=== PATIENT | male | born 1955 | race Caucasian/White ===

== ENCOUNTER 2017-01-23 10:46 | Emergency (ER) | payer OTHER ==
[~2017-01-23] VITALS: Ht 177.8 cm; Wt 129.0 kg
[2017-01-23 10:50] VITALS: PULSE 72; RESP 18; TEMP 98.1; O2SAT 95
[2017-01-23] MEDS ORDERED: METF1000 PO (11:20)
[2017-01-23] MEDS ORDERED: APIX5TAB PO (11:20)
[2017-01-23] MEDS ORDERED: METO100T9 PO (11:20)
[2017-01-23] MEDS ORDERED: CANA300T PO (11:20)
--- NOTE | 2017-01-23 11:22 | PD ---
HPI Chief Complaint: Flank/Kidney Pain Time Seen by Provider: 11:19 Travel History International Travel<30 days: No Contact w/Intl Traveler<30days: No Traveled to known affect area: No History of Present Illness HPI 61-year-old male with history of previous kidney stones, presents to the ER today for left flank pains that started at 6 AM. He states is currently a 6 out of 10 but getting worse. He has been nauseous, vomiting, he states the pain is waxing and waning which is more consistent with his previous kidney stones. He denies any diarrhea, fevers, urinary symptoms, or any other symptoms. He states that her left flank pain radiates to his left lower quadrant. Modifying Factors: None Associated Signs & Symptoms: Left flank pain Risk Factors: Kidney stone history PFSH Past Medical History Diabetes: Yes Patient Takes Glucophage: Yes Genitourinary: Yes (KIDNEY STONES) Hypertension: Yes Medical other: Yes (BLOOD CLOT IN HEART) Past Surgical History Other Surgery: Yes (LUMP REMOVED L LUNG) Social History Alcohol Use: Yes Tobacco Use: No Substance Use: Yes (MARIJUANA) Allergies-Medications (Allergen,Severity, Reaction): Coded Allergies: No Known Allergies (Unverified , 01/23/17) Reported Meds & Prescriptions Reported Meds & Active Scripts Active Reported Eliquis (Apixaban) 5 Mg Tab 5 Mg PO DAILY Metoprolol Succinate ER 24 HR (Metoprolol Succinate) 100 Mg Tab 100 Mg PO BID Metformin (Metformin HCl) 1,000 Mg Tab 1,000 Mg PO BIDPC With meals Invokana (Canagliflozin) 300 Mg Tab 300 Mg PO DAILY Take before 1st meal of day. Review of Systems Except as stated in HPI: all other systems reviewed are Neg Physical Exam Narrative GENERAL: Middle age white male currently in mild distress. He is awake, alert, oriented 3. SKIN: Warm and dry. HEAD: Atraumatic. Normocephalic. EYES: Pupils equal and round. No scleral icterus. No injection or drainage. ENT: No nasal bleeding or discharge. Mucous membranes pink and moist. NECK: Trachea midline. No JVD. CARDIOVASCULAR: Regular rate and rhythm. No murmur appreciated. RESPIRATORY: No accessory muscle use. Clear to auscultation. Breath sounds equal bilaterally. GASTROINTESTINAL: Abdomen soft, mild left-sided tenderness without guarding or rebound, nondistended. Hepatic and splenic margins not palpable. MUSCULOSKELETAL: No obvious deformities. No clubbing. No cyanosis. No edema. NEUROLOGICAL: Awake and alert. No obvious cranial nerve deficits. Motor grossly within normal limits. Normal speech. PSYCHIATRIC: Appropriate mood and affect; insight and judgment normal. Data Data Last Documented VS Vital Signs Date Time Temp Pulse Resp B/P Pulse Ox O2 Delivery O2 Flow Rate FiO2 01/23/17 12:12 72 18 143/68 98 01/23/17 10:50 98.1 Room Air Orders Complete Blood Count With Diff (01/23/17 11:06) Comprehensive Metabolic Panel (01/23/17 11:06) Lipase (01/23/17 11:06) Urinalysis - C+S If Indicated (01/23/17 11:06) Ct Abd/Pel W/O Iv Contrast (01/23/17 11:06) Iv Access Insert/Monitor (01/23/17 11:06) Ecg Monitoring (01/23/17 11:06) Oximetry (01/23/17 11:06) Sodium Chlor 0.9% 1000 Ml Inj (Ns 1000 M (01/23/17 11:30) Ondansetron Inj (Zofran Inj) (01/23/17 11:30) Ketorolac Inj (Toradol Inj) (01/23/17 11:30) Labs Laboratory Tests Test 01/23/17 11:20 White Blood Count 11.6 TH/MM3 Red Blood Count 5.52 MIL/MM3 Hemoglobin 15.9 GM/DL Hematocrit 48.8 % Mean Corpuscular Volume 88.4 FL Mean Corpuscular Hemoglobin 28.8 PG Mean Corpuscular Hemoglobin 32.6 % Concent Red Cell Distribution Width 13.0 % Platelet Count 213 TH/MM3 Mean Platelet Volume 9.3 FL Neutrophils (%) (Auto) 76.8 % Lymphocytes (%) (Auto) 17.3 % Monocytes (%) (Auto) 4.2 % Eosinophils (%) (Auto) 0.8 % Basophils (%) (Auto) 0.9 % Neutrophils # (Auto) 8.9 TH/MM3 Lymphocytes # (Auto) 2.0 TH/MM3 Monocytes # (Auto) 0.5 TH/MM3 Eosinophils # (Auto) 0.1 TH/MM3 Basophils # (Auto) 0.1 TH/MM3 CBC Comment DIFF FINAL Differential Comment Urine Collection Type CLEAN CATCH Urine Color YELLOW Urine Turbidity SLIGHT Urine pH 5.5 Urine Specific [place] 1.030 Urine Protein NEG mg/dL Urine Glucose (UA) 1000 OR GREATER mg/dL Urine Ketones NEG mg/dL Urine Occult Blood LARGE Urine Nitrite NEG Urine Bilirubin NEG Urine Leukocyte Esterase NEG Urine RBC 100-200 /hpf Urine WBC 0-2 /hpf Urine Squamous Epithelial 0-5 /hpf Cells Urine Bacteria FEW /hpf Microscopic Urinalysis Comment CULT NOT INDICATED Urine Collection Time 11:20 Sodium Level 141 MEQ/L Potassium Level 4.2 MEQ/L Chloride Level 105 MEQ/L Carbon Dioxide Level 23.7 MEQ/L Anion Gap 12 MEQ/L Blood Urea Nitrogen 20 MG/DL Creatinine 1.20 MG/DL Estimat Glomerular Filtration 62 ML/MIN Rate Random Glucose 176 MG/DL Calcium Level 9.2 MG/DL Total Bilirubin 0.6 MG/DL Aspartate Amino Transf 14 U/L (AST/SGOT) Alanine Aminotransferase 23 U/L (ALT/SGPT) Alkaline Phosphatase 67 U/L Total Protein 7.2 GM/DL Albumin 3.7 GM/DL Lipase 257 U/L [facility] Medical Decision Making Medical Screen Exam Complete: Yes Emergency Medical Condition: Yes Medical Record Reviewed: Yes Interpretation(s) Laboratory Tests Test 01/23/17 11:20 White Blood Count 11.6 TH/MM3 (4.0-11.0) Neutrophils (%) (Auto) 76.8 % (16.0-70.0) Neutrophils # (Auto) 8.9 TH/MM3 (1.8-7.7) Urine Glucose (UA) 1000 OR GREATER mg/dL (NEG) Urine Occult Blood LARGE (NEG) Urine RBC 100-200 /hpf (0-3) Urine Bacteria FEW /hpf (NONE) Blood Urea Nitrogen 20 MG/DL (7-18) Estimat Glomerular Filtration 62 ML/MIN (>89) Rate Random Glucose 176 MG/DL (74-106) Aspartate Amino Transf 14 U/L (15-37) (AST/SGOT) Differential Diagnosis Left flank pain and left-sided abdominal painsrenal colic versus pyelonephritis versus diverticulitis Narrative Course Lab work shows blood in the urine and the CAT scan shows 5 mm stone in the left ureter showing hydronephrosis. Patient was given IV fluids and Toradol in the ER. On reevaluation at 12:30 PM, his pain is better controlled and is currently a 4 out of 10. At this point, case was discussed with Dr. Garduno of urology and he states that the patient can follow-up with him in the clinic. Return for any worsening in pain or new symptoms as needed. The plan has been discussed with the patient and he states understanding. Diagnosis Primary Impression: Renal colic on left side Referrals: Dany Garduno MD Med/Other Pt SpecificInfo: Prescription(s) given Scripts Alfuzosin ER 24 HR (Uroxatral ER 24 HR)10 Mg Tab10 Mg PO DAILY #7 TAB Ref 0 Prov:Jacey Wilson MD 01/23/17 Hydrocodone-Acetaminophen (Lortab)5-325 Mg Tab1-2 Tab PO Q6H PRN (PAIN) #20 TAB Ref 0 Prov:Jacey Wilson MD 01/23/17 Disposition: 01 DISCHARGE HOME Condition: Stable Jacey Wilson MD Jan 23, 2017 11:22
[2017-01-23 11:30] VITALS: O2SAT 97
[2017-01-23 11:30] LABS: AUTOMATED NEUTROPHIL # 8.9 TH/MM3 (1.8-7.7); BASOPHIL # 0.1 TH/MM3 (0-0.2); BASOPHIL % 0.9 % (0.0-2.0); EOSINOPHIL # 0.1 TH/MM3 (0-0.4); EOSINOPHIL % 0.8 % (0.0-4.0); HEMATOCRIT 48.8 % (39.0-51.0); HEMO FLAGS DIFF FINAL; LYMPH % 17.3 % (9.0-44.0); MEAN CELL VOLUME 88.4 FL (80.0-100.0); MEAN CORPUSCULAR HEMOGLOBIN 28.8 PG (27.0-34.0); MEAN CORPUSCULAR HGB CONC 32.6 % (32.0-36.0); MONO % 4.2 % (0.0-8.0); NEUT % 76.8 % (16.0-70.0); PLATELET COUNT 213 TH/MM3 (150-450); RED BLOOD COUNT 5.52 MIL/MM3 (4.50-5.90); WHITE BLOOD COUNT 11.6 TH/MM3 (4.0-11.0)
[2017-01-23] MEDS ORDERED: ONDANSETRON HCL 4 MG/2 ML VIAL IV PUSH ONE (11:30)
[2017-01-23] MEDS ORDERED: SODIUM CHLOR 0.9% 1000 ML INJ 1,000 ML IV ONE (11:30)
[2017-01-23] MEDS ORDERED: KETOROLAC TROMETHAMINE 30 MG/ML (IVP) VIAL IV PUSH ONE (11:30)
[2017-01-23 11:36] LABS: BLOOD, URINE LARGE (NEG); KETONE, URINE NEG (NEG); NITRITE,URINE NEG (NEG); PH, URINE 5.5 (5.0-8.5)
[2017-01-23 11:37] LABS: GLUCOSE,URINE 1000 OR GREATER mg/dL (NEG)
[2017-01-23 11:39] LABS: CHLORIDE 105 MEQ/L (98-107); POTASSIUM 4.2 MEQ/L (3.5-5.1); SODIUM (NA) 141 MEQ/L (136-145)
[2017-01-23 11:43] LABS: ANION GAP 12 MEQ/L (5-15); BICARBONATE 23.7 MEQ/L (21.0-32.0); BLOOD UREA NITROGEN 20 MG/DL (7-18)
[2017-01-23 11:46] LABS: ALT (GPT) 23 U/L (12-78); AST (GOT) 14 U/L (15-37); GLOMERULAR FILTRATION RATE 62 ML/MIN (>89); METHOD OF COLLECTION CLEAN CATCH; URINE COLOR YELLOW (YELLW/STRAW)
[2017-01-23 11:47] LABS: BACTERIA, URINE FEW /hpf; RBC, URINE 100-200 /hpf (0-3); SQUAMOUS EPITHELIAL CELL URINE 0-5 /hpf (0-5); TOTAL BILIRUBIN ADULT 0.6 MG/DL (0.2-1.0); WBC, URINE 0-2 /hpf (0-5)
[2017-01-23 11:48] LABS: ALKALINE PHOSPHATASE 67 U/L (45-117); COMMENT (UR) CULT NOT INDICATED; CULTURE IF INDICATED CULT NOT INDICATED
--- NOTE | 2017-01-23 12:02 | RADHPO ---
EXAM DATE/TIME: 01/23/2017 11:27 [facility] COMPARISON: No previous studies available for comparison. INDICATIONS: Left flank pain. ORAL CONTRAST: No oral contrast ingested. RADIATION DOSE: 25.95 CTDIvol (mGy) MEDICAL HISTORY: Renal calculi. SURGICAL HISTORY: None. ENCOUNTER: Initial ACUITY: 1 day PAIN SCALE: 8/10 LOCATION: Left flank TECHNIQUE: Volumetric scanning of the abdomen and pelvis was performed. Using automated exposure control and ad justment of the mA and/or kV according to patient size, radiation dose was kept as low as reasonably achievable to obtain optimal diagnostic quality images. FINDINGS: There is acute obstructive uropathy of the left distal ureter secondary to calcified 5 mm calculus se veral centimeters proximal to the left ureterovesical junction resulting in mild ureteropelvic caliec tasis. Pyelosinus extravasation is noted on the left. There are multiple calcified non-obstructing left renal calculi also with the largest measuring approximately 7 mm in size. Evaluation of the solid organs of the abdomen is limited by the lack of intravenous contrast. Uncompl icated colonic diverticulosis is noted. The appendix is normal. The visualized lung bases are clear . Mild hepatosplenomegaly is noted. CONCLUSION: 1. Acute obstructive uropathy of the left distal ureter several centimeters proximal to the left ure terovesical junction secondary to a 5 mm calcified calculus resulting in mild ureteropelvic caliectas is on the left and pyelosinus extravasation on the left. 2. Multiple calcified non-obstructing left renal calculi are noted. 3. Mild hepatosplenomegaly. 4. Uncomplicated colonic diverticulosis. Glenroy Chen MD on January 23, 2017 at 11:41 Board Certified Radiologist. This report was verified electronically.
[2017-01-23 12:12] VITALS: BP 143/68; PULSE 72; RESP 18; O2SAT 98
[2017-01-23] MEDS ORDERED: UROX10TA3 PO (13:03)
[2017-01-23] MEDS ORDERED: HYDR-3533 PO (13:03)
[2017-01-23 13:09] VITALS: BP 129/72; PULSE 100; RESP 20; O2SAT 98
[2017-01-23] MEDS ORDERED: ZOFR4TAB3 SL (13:09)
== END 2017-01-23 13:20 | disposition home or self-care (01) ==
LOC: PHED 10:46
DX: N13.2 Hydronephrosis with renal and ureteral calculous obstruction (principal)
CPT/HCPCS: 74176; 80053; 81001; 83690; 85025; 96374; 96375; 99284; J1885; J2405; J7030